=== PATIENT | female | born 1960 | race Caucasian/White ===

== ENCOUNTER 2021-03-03 23:40 | Emergency (ER) | payer OTHER ==
[2021-03-03 23:49] VITALS: BP 135/70; PULSE 80; TEMP 98
[2021-03-03] MEDS ORDERED: TETRACAINE 0.5% HCL 0.6ML DROPPER.BOTTLE OS ONE (23:51)
[2021-03-03] MEDS ORDERED: FLUORESCEIN NA 1 EA STRIP OS ONE (23:51)
[2021-03-03] MEDS ORDERED: FLUORESCEIN NA 1 EA STRIP ONE (23:55)
[2021-03-03] MEDS ORDERED: TETRACAINE 0.5% OPHTH SOLN 2 ML BOTTLE ONE (23:55)
== END 2021-03-04 00:51 | disposition home or self-care (01) ==
LOC: FER 23:40
DX: H57.12 Ocular pain, left eye (principal)
CPT/HCPCS: 99283-25

== ENCOUNTER 2022-11-25 18:50 | Emergency (ER) | payer OTHER ==
[2022-11-25 19:10] VITALS: BP 144/87; PULSE 83; RESP 16; TEMP 98.8; BMI 19.8
== END 2022-11-25 20:25 | disposition home or self-care (01) ==
LOC: FER 18:50
DX: T59.811A Toxic effect of smoke, accidental (unintentional), initial encounter (principal); J39.2 Other diseases of pharynx; X08.8XXA Exposure to other specified smoke, fire and flames, initial encounter; Y26.XXXA Exposure to smoke, fire and flames, undetermined intent, initial encounter; Y93.9 Activity, unspecified; Y92.019 Unspecified place in single-family (private) house as the place of occurrence of the external cause
CPT/HCPCS: 99282-25

== ENCOUNTER 2024-01-20 14:12 | Emergency (ER) | payer OTHER ==
[2024-01-20 14:21] VITALS: BP 156/87; PULSE 106; RESP 18; TEMP 99; BMI 19.8
[2024-01-20 14:46] LABS: HEMATOCRIT 40.7 % (32.4-45.2); HEMOGLOBIN 13.3 G/dL (10.7-15.3); MCHC 32.6 g/dl (32.0-36.0); MEAN CELL VOLUME 92.2 fl (80-96); MEAN PLT VOLUME 9.7 fl (7.5-11.1); PLATELET COUNT 215.4 10^3/uL (134-434); RBC 4.41 10^6/uL (3.60-5.2); RDW 14.2 % (11.6-15.6); WHITE BLOOD COUNT 5.6 10^3/uL (4.0-10.8)
[2024-01-20 14:54] LABS: INR 0.99 (0.83-1.09); PROTHROMBIN TIME (PATIENT) 11.3 SEC (9.7-13.0)
[2024-01-20 14:57] LABS: ACTIVATED PTT 34.4 SECONDS (25.2-36.5)
[2024-01-20] MEDS ORDERED: hydrOXYzine PAMOATE 25 MG CAPSULE (FP) PO ONE (15:08)
[2024-01-20] MEDS: hydrOXYzine PAMOATE 25 MG CAPSULE (FP) PO ONE (15:14)
[2024-01-20 15:15] LABS: PLATELET ESTIMATE ADEQUATE
[2024-01-20 15:20] LABS: ALBUMIN 4.6 g/dl (3.4-5.0); ALK PHOS 49 U/L (45-117); ANION GAP 10 mmol/L (4-13); BILIRUBIN,TOTAL 0.7 mg/dl (0.2-1); CHLORIDE 102 mmol/L (98-107); CO2 28 mmol/L (21-32); CREATININE 0.9 mg/dl (0.6-1.3); GLUCOSE,RANDOM 92 mg/dl (74-106); POTASSIUM 3.9 mmol/L (3.5-5.1); SGOT/AST 17 U/L (15-37); SGPT/ALT 11 U/L (7-52); SODIUM 140 mmol/L (136-145); TOT PROT 6.7 g/dl (6.4-8.2)
== END 2024-01-20 16:57 | disposition home or self-care (01) ==
LOC: FER 14:12
DX: F41.9 Anxiety disorder, unspecified (principal); R00.2 Palpitations; F43.9 Reaction to severe stress, unspecified; Z20.822 Contact with and (suspected) exposure to COVID-19
CPT/HCPCS: 0241U-QW; 36415; 71045-TC-FY; 80053; 83735; 84484; 85027; 85610; 85730; 93005; 99285-25